=== PATIENT | female | born 2005 | race Hispanic/Latino ===

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

== ENCOUNTER 2023-08-19 11:24 | Emergency (ER) | payer SELFPAY ==
[2023-08-19 11:24] VITALS: BP 108/64; PULSE 66; RESP 16; TEMP 36.2; O2SAT 100; BMI 23.3
[2023-08-19 13:07] LABS: Mucous, Urine 0 SEEN /hpf (<or=2+); Red Blood Cells-Urine 0 SEEN /hpf (0-5)
[2023-08-19 13:11] LABS: Absolute Lymphocyte Count 2.39 X10^3/uL (0.83-4.51); Absolute Neutrophil Count 4.2 X10^3/uL (2.0-7.7); Basophil# 0.05 X10^3/uL; Basophil% 0.7 % (0-1); Eosinophil# 0.07 X10^3/uL; Hematocrit 37.6 % (37-47); Hemoglobin 11.4 g/dL (12.0-15.0); Lymphocyte # 2.39 X10^3/ul (0.83-4.51); Lymphocyte % 33.3 % (19-41); Mean Corp Hgb Conc 30.3 g/dL (32-36); Mean Corpuscular Hgb 24.5 pg (27.0-32.0); Mean Corpuscular Volume 80.9 fL (81-99); Mean Platelet Vol. 9.8 fl (6.2-12.0); Monocyte# 0.43 X10^3/uL; NRBC Flagged by Analyzer 0 % (0-5); Neutrophil # 4.22 X10^3/uL (2.7-7.7); Neutrophil % 58.7 % (47-70); Platelet Count 315 K/mm3 (150-450); RBC Distribution Width CV 15.9 % (11.6-14.6); RBC Distribution Width SD 46.7 fl (35.1-43.9); Red Blood Count 4.65 M/mm3 (4.2-5.4); White Blood Count 7.2 K/mm3 (4.4-11.0)
[2023-08-19 13:12] LABS: Color, Urine Yellow (Yellow); Glucose, Dipstick Normal (Normal); Ketone-Dipstick Negative (Negative); Leukocyte Esterase-Dipstick 500 /ul (Negative); Nitrite-Dipstick Negative (Negative); Occult Blood-Urine Negative /ul (Negative); Protein-Dipstick 15 mg/dl (Negative); Specific Gravity, Urine 1.015 (1.002-1.030); Urine Bilirubin Dipstick Negative (Negative); Urine Clarity Sl. Cloudy (Clear); Urine Urobilinogen Normal (Normal)
[2023-08-19 13:19] LABS: Bacteria 1+ /hpf (None Seen); Squamous Epithelial Cells - UA 10-25 SEEN /hpf (5-10); White Blood Cells 25-50 SEEN /hpf (0-5)
[2023-08-19 13:25] LABS: AST(SGOT) 15 U/L (15-37); Alanine Aminotransfer ALT/SGPT 19 U/L (13-56); Albumin, Serum 4.3 g/dL (3.2-5.0); Alkaline Phosphatase 92 U/L (45-117); Anion Gap 6 (5-15); BUN 10 mg/dL (7-18); BUN/Creat Ratio 16.6 RATIO (10-20); Calcium,Total 9.4 mg/dL (8.5-10.1); Chloride 107 mmol/L (98-107); EST Glomerular Filtration Rate 134 mL/min (>60); Est Glom Filt Rate - Afr Amer 162 mL/min (>60); Estimated Creatinine Clearance 112.86 ml/min; Globulin 4.4 g/dL (2.2-4.2); Glucose 93 mg/dL (74-106); Potassium 3.3 mmol/L (3.5-5.1); Protein, Total 8.7 g/dL (6.4-8.2); Sodium Level 139 mmol/L (136-145)
[2023-08-19 13:39] LABS: Internal QC Validated? YES +Cl - CLEAR BKGD; Pregnancy, Serum, hCG Quali. NEGATIVE Negative
--- NOTE | 2023-08-19 16:07 | EDS_ITS ---
HPI HPI - GI History of Present Illness Chief Complaint: Abd Pain Informant: patient Abdominal Pain/Flank Pain Onset: Weeks (1) Context: Gradual Onset Timing: Continuous Quality: Aching Location: LLQ and Left Flank Worsened by: Nothing Relieved by: Nothing Nausea/Vomiting/Emesis GI Symptom: Positive for Nausea and Vomiting Diarrhea/Melena/Hematochezia GI Symptom: Negative for Diarrhea, Melena or Hematochezia Associated Symptoms Associated Symptoms: Positive for Dysuria and Hematuria; Negative for Frequency Narrative Narrative: Patient presents with abdominal pain that has been getting worse over the past week. Patient states her pain is mainly over the left lower abdomen. Patient states it radiates into her left flank. Patient describes her pain as aching. Patient states nothing makes it better and nothing makes it worse. Patient admits to some nausea and vomiting. Patient denies any hematemesis or coffee- ground emesis. Patient denies any diarrhea, melena, or hematochezia. Patient admits to some dysuria and possible hematuria. PFSH PFSH Medical History no medical history no medical history Home Medications diphenhydramine-zinc acetate 1 %-0.1 % topical cream (Benadryl Itch Stopping) 1 applic topical BID PRN itching #28.3 grams 09/09/22 [Rx Last Taken Unknown] sulfamethoxazole 800 mg-trimethoprim 160 mg tablet 1 tab PO BID #6 TABLETS 08/19/23 [Rx Last Taken Unknown] Allergy/AdvReac Type Severity Reaction Status Date / Time No Known Allergies Allergy Verified 09/09/22 21:45 Surgical History no surgical history no surgical history Social History Smoking Status: Never smoker ROS ROS ED Constitutional Constitutional ED: Denies chills or fever(s) Eyes Eyes: Denies blurry vision or change in vision ENT ENT ED: Denies rhinorrhea or sore throat Cardiovascular Cardiovascular: Denies chest pain or palpitations Respiratory/Chest Respiratory/Chest: Denies cough or dyspnea Gastrointestinal Gastrointestinal: Reports abdominal pain, nausea and vomiting; Denies diarrhea or melena Genitourinary Genitourinary ED: Reports dysuria and hematuria Musculoskeletal Musculoskeletal: Reports back pain; Denies neck pain Integumentary Denies abscess or rash Neurologic Neurologic: Denies headache(s) or weakness Allergic/Immunologic Allergic/Immunologic ED: Denies mouth swelling or urticaria EXAM Physical Exam Const Vital Signs: 08/19/23 11:24 08/19/23 16:39 Temperature 97.2 F L Temperature Source Temporal Pulse Rate 66 69 Respiratory Rate 16 16 Blood Pressure 108/64 109/58 L Blood Pressure Mean 78 75 Pulse Ox 100 100 Oxygen Delivery Method Room Air Room Air Positive well nourished and well developed General Appearance ED: well developed and NAD HEENT Reports moist mucous membranes Neck supple and no JVD Resp normal respiratory effort and clear to auscultation bilaterally Cardio regular rate and regular rhythm GI non-distended Palpation: soft and tender epigastric, LLQ and LUQ; Negative for guarding or rebound tenderness present Back/Spine General Back: CVA tenderness left Neuro CN's II-XII intact bilaterally, moves all extremities, no sensory deficits noted and gait normal Sensorium / Orientation: alert Motor Exam: strength 5/5 throughout Psych mental status grossly normal MDM MDM MDM Narrative Medical decision making narrative: Differential diagnosis includes urinary tract infection, ureteral calculus, pyelonephritis, gastroenteritis, dehydration, electrolyte abnormality, ectopic , ovarian cyst, and viral illness. CBC will be obtained to assess for leukocytosis and anemia. Comprehensive metabolic profile will be obtained to assess for electrolyte abnormality, hepatic function, and renal function. Serum hCG will be obtained to assess for . Urinalysis will be obtained to assess for urinary tract infection. CT scan of the abdomen and pelvis will be obtained to assess for ureteral calculus bowel obstruction, and perforation. Urine culture will be obtained to assess for urinary tract infection. Lab Data Attestation: I reviewed the patient's lab results. Lab results narrative: CBC was reviewed. There is a slight anemia with a hemoglobin of 11.4 and hematocrit 37.6. The remainder is within normal limits. Comprehensive metabolic profile was reviewed and was essentially within normal limits. Serum hCG was reviewed and was negative. Urinalysis was reviewed. Leukocyte esterase was 500 with 25-50 white blood cells. There are 10-25 epithelial cells and 1+ bacteria. Labs: Laboratory Results - last 24 hr 08/19/23 08/19/23 12:45 13:00 WBC 7.2 RBC 4.65 Hgb 11.4 L Hct 37.6 MCV 80.9 L MCH 24.5 L MCHC 30.3 L RDW Std Deviation 46.7 H RDW Coeff of Hollie 15.9 H Plt Count 315 MPV 9.8 Immature Gran % (Auto) 0.300 Neut % (Auto) 58.7 Lymph % (Auto) 33.3 [place] % (Auto) 6.0 Eos % (Auto) 1.0 Baso % (Auto) 0.7 Absolute Neuts (auto) 4.2 Absolute Lymphs (auto) 2.39 Nucleated RBC % 0 Sodium 139 Potassium 3.3 L Chloride 107 Carbon Dioxide 26.0 Anion Gap 6 BUN 10 Creatinine 0.60 Estim Creat Clear Calc 112.86 Est GFR (MDRD) Af Amer 162 Est GFR (MDRD) Non-Af 134 BUN/Creatinine Ratio 16.6 Glucose 93 Calcium 9.4 Total Bilirubin 0.50 AST 15 ALT 19 Alkaline Phosphatase 92 Total Protein 8.7 H Albumin 4.3 Globulin 4.4 H Albumin/Globulin Ratio 1.0 Serum , Qual NEGATIVE Urine Color Yellow Urine Clarity Sl. Cloudy Urine pH 8.0 Ur Specific [place] 1.015 Urine Protein 15 H Urine Glucose (UA) Normal Urine Ketones Negative Urine Occult Blood Negative Urine Nitrite Negative Urine Bilirubin Negative Urine Urobilinogen Normal Ur Leukocyte Esterase 500 H Urine RBC 0 SEEN Urine WBC 25-50 SEEN Ur Squamous Epith Cells 10-25 SEEN Urine Bacteria 1+ Urine Mucus 0 SEEN Radiography Diagnostic Testing: Clinical Impression(s) from Imaging Studies Abdomen/Pelvis CT 08/19/23 16:27 IMPRESSION: Cholelithiasis. Left unilateral nephrocalcinosis without formed stones. Electronically Signed: Jonnathan Varma MD at 17:22 EST , CT scan of the abdomen pelvis was obtained. There is cholelithiasis. There is no ureteral calculus or hydronephrosis. There is nephrocalcinosis but no formed kidney stones. There is no evidence of bowel obstruction or perforation. There is no free air or free fluid. This was interpreted by the radiologist and was also independently reviewed by myself. Treatment and Re-Evaluation :: Patient was given IV fluids, Toradol, and Zofran. Patient was advised of her findings. Patient was given a dose of Bactrim here. Patient was given a prescription for Bactrim. Patient was instructed to drink plenty of fluids. Patient was instructed to follow-up with her primary care physician in 5 to 7 days. Patient understood and was agreeable with the plan. All questions were answered. Discharge Plan Triage Chief Complaint: Abd Pain ED Provider: Luis Garza Dx/Rx/DC Orders Clinical Impression: Left lower quadrant abdominal pain, Cystitis Instructions: ED Cystitis Female Adult Prescriptions: New sulfamethoxazole-trimethoprim [sulfamethoxazole-trimethoprim] 800-160 mg tablet 1 tab PO BID Qty: 6 0RF No Action Benadryl Itch Stopping 1-0.1 % cream 1 applic topical BID PRN (Reason: itching) Qty: 28.3 0RF Primary Care Provider: Care Physician,No Primary Referrals: Kael Lujan MD [Med Staff - [employer] Attendant] - 5-7 Days Care Physician,No Primary [Primary Care Provider] - Print Language: Afghan Disposition Disposition: Home, Self Care
--- NOTE | 2023-08-19 16:27 | CT_ITS ---
STUDY: CT ABDOMEN AND PELVIS WITHOUT CONTRAST REASON FOR EXAM: Female, 18 years old. Left flank pain RADIATION DOSAGE (If Supplied By Facility): CTDIvol = ( 6.04 ) mGy, DLP = ( 289.93 ) mGycm TECHNIQUE: Transaxial images were obtained from the dome of the diaphragm to the symphysis pubis without oral contrast, and without intravenous contrast. Sagittal and coronal images were reconstructed. Individualized dose optimization techniques were used for this CT. COMPARISON: None. FINDINGS: The visualized lung bases are unremarkable. The visualized portions of the heart are within normal limits. Normal liver. There are multiple gallstones. Normal spleen. Normal pancreas. Normal bilateral adrenal glands. Normal right kidney. No hydronephrosis. Numerous scattered calcifications seen in all segments of the left kidney are unilateral left nephrocalcinosis without formed stones. No hydronephrosis. Evaluation of the GI tract is limited by absence of oral contrast. Cannot exclude stomach wall thickening. No dilated loops of bowel or evidence for obstruction. Cannot exclude segmental thickening of the schilling of the small or large bowel. Cannot exclude enteritis or colitis. Moderate diffuse fecal retention. Appendix within normal limits. Normal abdominal aorta. Normal inferior vena cava. Normal retroperitoneum. Normal urinary bladder. Normal visualized uterus. Normal abdominal wall. Normal osseous structures. CT/Abdomen/Pelvis without Cont IMPRESSION: Cholelithiasis. Left unilateral nephrocalcinosis without formed stones. Electronically Signed: Jonnathan Varma MD at 17:22 EST ,
[2023-08-19] MEDS: 0.9% Normal Saline (1000mL) 1,000 ML 1000 ML IV (16:35)
[2023-08-19] MEDS: Ondansetron 4 MG/2 ML Vial IV (16:35)
[2023-08-19] MEDS: Ketorolac 30 MG/ML Syringe IV (16:35)
[2023-08-19 16:39] VITALS: BP 109/58; PULSE 69; RESP 16; O2SAT 100
--- OUTSIDE RECORDS SUMMARY | 2023-08-19 17:34 | XMS RPT_ITS | CCD ---
Author Name Unknown Address [address] [place] [id number] Organization [facility] Care Team Providers Care Newspaper Copy Editor Name Role Phone Unavailable Primary Care Provider RITA Banks Attending Unavailable Medications Completed/Discontinued Medications Medication Drug Class(es) Dates Sig (Normalized) Sig (Original) 1 ml medroxyPROGESTERone acetate 150 mg/ml prefilled syringe (6 sources) Progestin Start: medroxyPROGESTERone (DEPO-PROVERA) 150 mg/mL Inject 1 mL intramuscularly every 12 weeks. 1 mL 3 09/12/2022 Active Problems Problem Classification Problem Date Documented Date Episodic/Chronic Contraceptive and procreative management (7 sources) Patient encounter status; Translations: [Encounter for other contraceptive management] Onset: 09-12-2022 Episodic Results Test Name Value Interpretation Reference Range Facil ity Vital Signs Date Time Vital Sign Value Performing Clinician Rachelle noyola 05-26-2023 16:04-0500 Diastolic blood pressure 62 mm[Hg] Nurse Wstr Work Phone: [facility] 05-26-2023 16:04-0500 Systolic blood pressure 94 mm[Hg] Nurse Wstr Work Phone: [facility] 02-28-2023 16:11-0400 Body weight 65.77 kg Nurse Wstr Work Phone: [facility] 02-28-2023 16:11-0400 Diastolic blood pressure 60 mm[Hg] Nurse Wstr Work Phone: [facility] 02-28-2023 16:11-0400 Systolic blood pressure 92 mm[Hg] Nurse Wstr Work Phone: [facility] 09-12-2022 13:49-0500 Body weight 65.41 kg Rita Girard DIRECTOR OF VIDEO ANALYTICS.PAINTING AND COATING WORKER Work Phone: [facility] 09-12-2022 13:49-0500 Diastolic blood pressure 60 mm[Hg] Rita Girard DIRECTOR OF VIDEO ANALYTICS.PAINTING AND COATING WORKER Work Phone: [facility] 09-12-2022 13:49-0500 Systolic blood pressure 100 mm[Hg] Rita Girard DIRECTOR OF VIDEO ANALYTICS.PAINTING AND COATING WORKER Work Phone: [facility] Encounters Encounter Date Encounter Type Care Provider Facility Start: 05-26-2023 End: 05-26-2023 ambulatory RITA JENISE Facility:[facility] Start: 05-26-2023 End: 05-26-2023 Nursing evaluation of patient and report Nurse Record Changer Tester [facility] Wstr Work Phone: OB/Gynecology Procedures Date Procedure Procedure Detail Performing Clinician Start: 09-12-2022 Urine test visual color cmprsn meths Rita Girard DIRECTOR OF VIDEO ANALYTICS.PAINTING AND COATING WORKER Work Phone: Plan of Treatment Date Care Activity Detail Author Start: 03-21-2023 Influenza vaccination C [facility] Start: 07-21-2022 DEPRESSION ASSESSMENT DEPRESSION ASS ESSMENT [facility] Start: 03-21-2022 Influenza vaccination INFLUENZA (#1) [facility] Start: 2022 Urine microalbumin profile [facility] Start: 2021 CHLAMYDIA SCREENING (18-24) CHLAMYDIA SCREENING (18-24) [facility] Start: 2021 GC (GONORRHEA) SCREE DOMINIQUE (18-24) GC (GONORRHEA) SCREENING (18-24) [facility] Start: 2021 HEPATITIS C SCREENING HEPATITIS C SC REENING [facility] Start: 2021 HIV SCREENING HIV SCREENING [facility] Start: 2019 Meningococcal B Vacc ine: Consider Based On Risk (1 of 2 - Patient Seeks Protection) Meningococcal B Vaccine: Consider Based On Risk (1 of 2 - Patient Seeks Protection) [facility] Start: 2019 MENINGOCOCCAL B: Con warp placer based on risk (1 of 2 - Patient Seeks Protection) MENINGOCOCCAL B: Consider based on risk (1 of 2 - Patient Seeks Protection) [facility] Start: 2017 PEDS TO ADULT TRANSI TION ANNUAL ASSESSMENT PEDS TO ADULT TRANSITION ANNUAL ASSESSMENT [facility] Start: 2015 PEDS TO ADULT TRANSI TION INITIAL DISCUSSION PEDS TO ADULT TRANSITION INITIAL DISCUSSION [facility] Start: 2014 HPV VACCINE (1 - 2-d ose series) HPV VACCINE (1 - 2-dose series) [facility] Start: 2013 MENINGOCOCCAL B: Con warp placer based on risk (1 of 2 - Risk Bexsero 2-dose series) MENINGOCOCCAL B: Consider based on risk (1 of 2 - Risk Bexsero 2-dose series) [facility] Start: 01-26-2012 HPV VACCINE (1 - 2-d ose series) HPV VACCINE (1 - 2-dose series) [facility] Start: 2003 COVID-19 VACCINE (#1) COVID-19 VACCI NE (#1) [facility] Start: 2003 HEPATITIS B (1 of 3 - 3-dose series) HEPATITIS B (1 of 3 - 3-dose series) [facility] Start: 2003 Hepatitis B Vaccine (1 of 3 - 3-dose series) Hepatitis B Vaccine (1 of 3 - 3-dose series) [facility] Social History Date Type Detail Facility Start: 09-12-2022 [facility] Work Phone: Start: 09-12-2022 Tobacco use and exposure Smokeless tobacco non-user [facility] Work Phone: Start: 09-12-2022 End: 02-28-2023 Alcohol intake Lifetime non-drinker (finding) [facility] Start: 2003 Sex Assigned At Not on file C [facility] Start: 12-05-2022 End: 02-28-2023 History of Social function [facility] Start: 12-05-2022 End: 02-28-2023 Tobacco use panel [facility] National Score (1-100), lower number is lower risk 90 [facility] Clinical Notes 09-12-2022 to 05-26-2023 Leyla Mccullough RN - 05/26/2023 3:54 PM Allie Richards RN - 02/28/2023 4:07 PM EDTAddendum Note - Mj Ordaz SUPERVISOR FINISHING - 09/12/2022 3:27 PM ESTKibeth Ordaz SUPERVISOR FINISHING - 09/12/2022 3:24 PM EST Note Date & Type Note Facility 05-26-2023 Note HNO ID: [id number] Author: Leyla Mccullough RN Service: ? Author Type: ? Type: Progress Notes Filed: 05/26/2023 4:14 PM Note Text: [place] Interpreting services utilized via [employer] ID number [id number] Patient identified by name and date of . Merrill Medellin is here for a Depo Provera injection. Patient brought medication. Date last injected: 02/28/2023 Depo-Provera, 150 mg, administered IM left upper quadrant gluteus, Lot # [id number], expiration date 10/18/2026. Depo-Provera was given without incident. Medication verified by dispensing pharmacist. Date of last menses: No LMP recorded (lmp unknown). Irregular bleeding - No Menses ceased - Yes Patient instructed to return to clinic on 12 weeks. [email or web address] Provider Ann-Marie Ortiz MD was present in office at time of injection. Leyla Mccullough RN [facility] 05-26-2023 History of Presen t illness Narrative [place] Interpreting services utilized via [employer] ID number [id number] Patient identified by name and date of . Merrill Medellin is here for a Depo Provera injection. Patient brought medication. Date last injected: 02/28/2023 Depo-Provera, 150 mg, administered IM left upper quadrant gluteus, Lot # [id number], expiration date 10/18/2026. Depo-Provera was given without incident. Medication verified by dispensing pharmacist. Date of last menses: No LMP recorded (lmp unknown). Irregular bleeding - No Menses ceased - Yes Patient instructed to return to clinic on 12 weeks. [email or web address] Provider Ann-Marie Ortiz MD was present in office at time of injection. Leyla Mccullough RN documented in this encounter [facility] 02-28-2023 Note HNO ID: [id number] Author: Allie Barrett RN Service: ? Author Type: ? Type: Progress Notes Filed: 02/28/2023 4:29 PM Note Text: [employer] Compensation Adjuster ID number: [id number] used for entire visit Patient identified by name and date of . Merrill Medellin is here for a Depo Provera injection. Patient brought medication. Date last injected: 12/05/22 Depo-Provera, 150 mg, administered IM right upper quadrant gluteus, Lot # [id number], expiration date 09/17/2024. Depo-Provera was given without incident. Date of last menses: No LMP recorded (lmp unknown). Irregular bleeding - Yes - irregular spotting - will call office in 2 months if it continues for f/u appointment to discuss options. Heavy bleeding precautions reviewed. Menses ceased - No STD prevention discussed: Yes Patient instructed to return to clinic on 12 weeks. [email or web address] Green was present in office at time of injection. Allie Barrett RN [facility] 02-28-2023 History of Presen t illness Narrative [employer] Compensation Adjuster ID number: [id number] used for entire visit Patient identified by name and date of . eMrrill Medellin is here for a Depo Provera injection. Patient brought medication. Date last injected: 12/05/22 Depo-Provera, 150 mg, administered IM right upper quadrant gluteus, Lot # [id number], expiration date 09/17/2024. Depo-Provera was given without incident. Date of last menses: No LMP recorded (lmp unknown). Irregular bleeding - Yes - irregular spotting - will call office in 2 months if it continues for f/u appointment to discuss options. Heavy bleeding precautions reviewed. Menses ceased - No STD prevention discussed: Yes Patient instructed to return to clinic on 12 weeks. [email or web address] Green was present in office at time of injection. Allie Barrett RN documented in this encounter [facility] 12-05-2022 Note HNO ID: [id number] Author: Allie Barrett RN Service: ? Author Type: ? Type: Progress Notes Filed: 12/05/2022 4:30 PM Note Text: Compensation Adjuster [id number] used Patient identified by name and date of . Merrill Medellin is here for a Depo Provera injection. Patient brought medication. Date last injected: 09/12/2022 Depo-Provera, 150 mg, administered IM left upper quadrant gluteus, Lot # [id number], expiration date 07/20/2024. Depo-Provera was given without incident. Date of last menses: Patient's last menstrual period was 09/09/2022. Irregular bleeding - No Menses ceased - Yes STD prevention discussed: Yes Patient instructed to return to clinic on 12 weeks. [email or web address] Provider Keren Boles APRN.MADELEINE was present in office at time of injection. Allie Barrett RN [facility] 09-12-2022 Note HNO ID: [id number] Author: Mj Ordaz LPN Service: ? Author Type: ? Type: Progress Notes Filed: 09/12/2022 3:26 PM Note Text: Pt seen in office today for Depo Provera Injection. Patient brought own med. BP 100/60 Wt 144 lb 3.2 oz (65.4kg) LMP 09/09/2022 Vital signs reviewed. Pt advised when to return for next injection and/or yearly pap. Tolerated injection well? YesPatient identified by name and date of . Merrill Medellin is here for a Depo Provera injection. Patient brought medication. Date last injected: first injection - negative test. Depo-Provera, 150 mg, administered IM right upper quadrant gluteus, Lot # [id number], expiration date 04/19/24. Depo-Provera was given without incident. Date of last menses: Patient's last menstrual period was 09/09/2022. Irregular bleeding - No Menses ceased - No STD prevention discussed: Yes Patient instructed to return to clinic on 12 weeks +/- 5days. [email or web address] [email or web address] Provider Rita Hunter CNP was present in office at time of injection. Mj Ordaz LPN . See medication note for lot#, exp date. [facility] 09-12-2022 Note HNO ID: [id number] Author: Rita Hunter APRN.CNP Service: ? Author Type: Nurse Practitioner Type: Progress Notes Filed: 09/12/2022 2:29 PM Note Text: CONTRACEPTION Compensation Adjuster phone used for this visit Merrill Medellin is a 17 year old who presents today for contraception. Patient states that she has done an injection in the past and the injection was every month. She is interested in doing the injection again. She states her last injection was April 2022. She is currently on her menstrual cycle. Patient states that she is , patient has no identification with her. Patient's last menstrual period was 09/09/2022.. SUBJECTIVE Sexually active: Yes Smoking No Last PAP Method of control: none Methods tried previously: Depo Provera satisfactory Patient currently interested in: Depo Provera Interested in in the next 3 years? No Date of last test: Not applicable Relevant Past Medical History: No relevant past medical history OB History T0 L0 SAB0 IAB0 Ectopic0 Multiple0 Live Births0 PAST MEDICAL HISTORY Diagnosis Date NEGATIVE MEDICAL HISTORY PAST SURGICAL HISTORY Procedure Laterality Date NONE No family history on file.SOCIAL HISTORY Social History Tobacco Use Smoking status: Never Smokeless tobacco: Never Vaping Use Vaping Use: Never used Substance Use Topics Alcohol use: Never Drug use: Never PAST SURGICAL HISTORY Procedure Laterality Date NONE Current Outpatient Medications Medication Sig medroxyPROGESTERone (DEPO-PROVERA) 150 mg/mL Inject 1 mL intramuscularly every 12 weeks. Current Facility-Administered Medications Medication Dose Route Frequency medroxyPROGESTERone 150 mg injection (DEPO-PROVERA) 150 mg INTRAMUSCULAR every 12 weeks Allergies As of Date: 09/12/2022 (No Known Allergies) Fully Assessed 09/12/2022 OBJECTIVE: General Appearance: Well appearing, alert, in no acute distress, well-hydrated, well nourished. Skin: Color normal Neck: Supple, no adenopathy; thyroid symmetric, normal size, no bruits Lungs: clear to auscultation Heart: regular rate and rhythm ASSESSMENT/PLAN: 1. Encounter for other contraceptive management - ICD9: V25.8, ICD10: Z30.8 - Depo Provera ordered - pt will return to the office for injection later today. Rita Hunter APRN.PAINTING AND COATING WORKER Medical Decision Making: Problems: Low: Acute, uncomplicated illness or injury Risk: Moderate: Drug management Medical Decision Making Level: 3 - Low [facility] 09-12-2022 Miscellaneous Notes Addended by: MJ ORDAZ LPN on: 09/12/2022 03:27 PM Modules accepted: Orders, SmartSet Addended by: MONIQUE ZAZUETA MA on: 09/12/2022 03:17 PM Modules accepted: Orders documented in this encounter [facility] 09-12-2022 History of Presen t illness Narrative Pt seen in office today for Depo Provera Injection. Patient brought own med. BP 100/60 Wt 144 lb 3.2 oz (65.4kg) LMP 09/09/2022 Vital signs reviewed. Pt advised when to return for next injection and/or yearly pap. Tolerated injection well? YesPatient identified by name and date of . Merrill Medellin is here for a Depo Provera injection. Patient brought medication. Date last injected: first injection - negative test. Depo-Provera, 150 mg, administered IM right upper quadrant gluteus, Lot # [id number], expiration date 04/19/24. Depo-Provera was given without incident. Date of last menses: Patient's last menstrual period was 09/09/2022. Irregular bleeding - No Menses ceased - No STD prevention discussed: Yes Patient instructed to return to clinic on 12 weeks +/- 5days. [email or web address] [email or web address] Provider Rita Hunter CNP was present in office at time of injection. Mj Ordaz LPN . See medication note for lot#, exp date. CONTRACEPTION Compensation Adjuster phone used for this visit Merrill Medellin is a 17 year old who presents today for contraception. Patient states that she has done an injection in the past and the injection was every month. She is interested in doing the injection again. She states her last injection was April 2022. She is currently on her menstrual cycle. Patient states that she is , patient has no identification with her. Patient's last menstrual period was 09/09/2022.. SUBJECTIVE Sexually active: Yes Smoking No Last PAP Method of control: none Methods tried previously: Depo Provera satisfactory Patient currently interested in: Depo Provera Interested in in the next 3 years? No Date of last test: Not applicable Relevant Past Medical History: No relevant past medical history OB History T0 L0 SAB0 IAB0 Ectopic0 Multiple0 Live Births0 PAST MEDICAL HISTORY Diagnosis Date NEGATIVE MEDICAL HISTORY PAST SURGICAL HISTORY Procedure Laterality Date NONE No family history on file.SOCIAL HISTORY Social History Tobacco Use Smoking status: Never Smokeless tobacco: Never Vaping Use Vaping Use: Never used Substance Use Topics Alcohol use: Never Drug use: Never PAST SURGICAL HISTORY Procedure Laterality Date NONE Current Outpatient Medications Medication Sig medroxyPROGESTERone (DEPO-PROVERA) 150 mg/mL Inject 1 mL intramuscularly every 12 weeks. Current Facility-Administered Medications Medication Dose Route Frequency medroxyPROGESTERone 150 mg injection (DEPO-PROVERA) 150 mg INTRAMUSCULAR every 12 weeks Allergies As of Date: 09/12/2022 (No Known Allergies) Fully Assessed 09/12/2022 OBJECTIVE: General Appearance: Well appearing, alert, in no acute distress, well-hydrated, well nourished. Skin: Color normal Neck: Supple, no adenopathy; thyroid symmetric, normal size, no bruits Lungs: clear to auscultation Heart: regular rate and rhythm ASSESSMENT/PLAN: 1. Encounter for other contraceptive management - ICD9: V25.8, ICD10: Z30.8 - Depo Provera ordered - pt will return to the office for injection later today. Rita Hunter APRN.CNP Medical Decision Making: Problems: Low: Acute, uncomplicated illness or injury Risk: Moderate: Drug management Medical Decision Making Level: 3 - Low documented in this encounter [facility] 09-12-2022 Instructions Mj Ordaz LPN - 09/12/2022 3:24 PM EST Patient Instructions for Depo-Provera You have chosen a very effective method of control - shots every 3 months of Depo-Provera. control shots are used by more than 6 million women around the world, and Depo-provera is the most commonly used injection or shot. Certain Women should NOT use Depo-Provera Contraception injection. You should not use Depo-Provera if you... Think you might be Have any vaginal bleeding without a known cause Have had cancer of the breast Have had a stroke Have or have had blood clots (phlebitis) in your legs Have problems with your liver or liver disease Are allergic to Depo-Provera Contraception Injection (medroxyprogesterone acetate or any of it's ingredients) If you wish to get , stop control shots several months before you plan to get . The following information may help you use Depo-Provera: 1. Use another form of control for 2 weeks after your first injection. 2. Depo-Provera tends to make a woman's periods less regular and bleeding and spotting between periods is common for the first 9 -12 months. Some women stop having periods completely, usually after 9 months on Depo-Provera. If your pattern of bleeding concerns you, return to the clinic to get a blood test for anemia, or to check the possibility of , or to check for an infection. 3. Return to the clinic every 3 months for another shot.(Between weeks 11-13 from your last injection) 4. Weight gain is common the first 3 years on Depo-Provera. More than 5 pounds the first year, should be reported. 5. Depo-Provera is intended to prevent . It does not protect against transmission of HIV (AIDS) and other sexually transmitted diseases such as chlamydia, genital herpes, genital warts, gonorrhea, hepatitis B, and syphilis. You should continue to use condoms. 6. Report to the clinic if you develop any problems. DANGER SIGNALS - Weight gain of more than 5 pounds - Headaches - Heavy Bleeding - Depression - Frequent urination These instructions have been explained to the patient and she received a copy. 09/12/2022 documented in this encounter [facility] Encounter for management and injection of depo-Provera- Primary Surveillance of other previously prescribed contraceptive method documented in this encounter [facility] Medications Administered Section Active Administered Medications - up to 3 most recent administrations Medication Order MAR Action Action Date Dose Rate Site medroxyPROGESTERone 150 mg injection (DEPO-PROVERA) 150 mg, INTRAMUSCULAR, EVERY 12 WEEKS, 4 doses, First dose on [place] 09/12/22 at 0800, Last dose on [place] 05/22/23 at 0800, Hazardous Potential Reproductive Risk Drug: Use appropriate PPE. Given 09/12/2022 3:26 PM EST 150 mg Buttocks, Right Active Administered Medications - up to 3 most recent administrations Medication Order MAR Action Action Date Dose Rate Site medroxyPROGESTERone 150 mg injection (DEPO-PROVERA) 150 mg, INTRAMUSCULAR, EVERY 12 WEEKS, 4 doses, First dose on [place] 09/12/22 at 0800, Last dose on [place] 05/22/23 at 0800, Hazardous Potential Reproductive Risk Drug: Use appropriate PPE. Given 02/28/2023 4:21 PM EDT 150 mg Buttocks, Right Inactive Administered Medications - up to 3 most recent administrations Medication Order MAR Action Action Date Dose Rate Site medroxyPROGESTERone 150 mg injection (DEPO-PROVERA) 150 mg, INTRAMUSCULAR, EVERY 12 WEEKS, 4 doses, First dose on Fri09/12/22 at 0800, Last dose on [place] 05/22/23 at 0800, Hazardous Potential Reproductive Risk Drug: Use appropriate PPE. Given 05/26/2023 4:13 PM EST 150 mg Buttocks, Left Summary Purpose Family History No Family History Records Found Advance Directives No Advanced Directives Records Found Additional Source Comments Source Comments (unrecognize d section and content) In the event this informatio n is protected by the Federal Confidentiality of Alcohol and Drug Abuse Patient Records regulations: The Federal rules restrict any use of the information to criminally investigate or prosecute any alcohol or drug abuse patient.[facility] the event this information is protected by the Federal Confidentiality of Alcohol and Drug Abuse Patient Records regulations: The Federal rules restrict any use of the information to criminally investigate or prosecute any alcohol or drug abuse patient.[facility] the event this information is protected by the Federal Confidentiality of Alcohol and Drug Abuse Patient Records regulations: The Federal rules restrict any use of the information to criminally investigate or prosecute any alcohol or drug abuse patient.[facility] Reason for Visit (unrecogniz ed section and content) Specialty Diagnoses / Procedures Referred By Contac t Referred To Contact END FINDER FORMING DEPARTMENT Diagnoses dEPO Procedures DEPO Self Wstr, Nurse Record Changer Tester [facility] [address] [place] [address] Referral ID Status Reason Start Date Expiration Date Visits Requested Visits Authorized [id number] Authorized Financial Clearance Required - Self Pay Patient Cleared - Qualified 100% FAS 02/28/2023 05/29/2023 99 99 Reason Onset Date Comments Discussion Depo Provera Injection 09/12/2022 Patient b rought own med Specialty Diagnoses / Procedures Referred By Aquiles t Referred To Contact END FINDER [employer]MING DEPARTMENT Diagnoses Encounter for surveillance of injectable contraceptive Depo shot Procedures MEDROXYPROGESTERONE ACETATE OFFICE/OUTPATIENT [facility] 60-74 MINUTES DEPO PROVERA INJECTION Self Wstr, Nurse Record Changer Tester [facility] [address] [place] [address] Referral ID Status Reason Start Date Expiration Date Visits Requested Visits Authorized [id number] Authorized Patient Cleared - Qualified 100% FAS 09/12/2022 12/11/2022 99 99 Reason Onset Date Comments Depo Provera Injection 02/28/2023 Specialty Diagnoses / Procedures Referred By Contac t Referred To Contact END FINDER [employer]MING DEPARTMENT Diagnoses dEPO Procedures DEPO Self Wstr, Nurse Record Changer Tester [facility] [address] [place] [address] Referral ID Status Reason Start Date Expiration Date Visits Requested Visits Authorized [id number] Authorized Financial Clearance Required - Self Pay Patient Cleared - Qualified 100% FAS 02/28/2023 05/29/2023 99 99 Reason Onset Date Comments Depo Provera Injection 05/26/2023 INFORMATION SOURCE (unrecogn ized section and content) FOR RECORDS PERTAINING TO PATIENTS WHO ARE OR HAVE BEEN ENROLLED IN A CHEMICAL DEPENDENCY/SUBSTANCEABUSE PROGRAM, SOME INFORMATION MAY BE OMITTED. This clinical summary was aggregated from multiple sources. Caution should be exercised in using it in the provision of clinical care. This summary normalizes information from multiple sources, and as a consequence, information in this document may materially change the coding, format and clinical context of patient data. In addition, data may be omitted in some cases. CLINICAL DECISIONS SHOULD BE BASED ON THE PRIMARY CLINICAL RECORDS. [facility] [employer] [facility]. provides no warranty or guarantee of the accuracy or completeness of information in this document.
[2023-08-19] MEDS: Smz/Tmp Ds Tablet 1 TABLET PO (17:48)
== END 2023-08-19 17:56 | disposition home or self-care (01) ==
PROVIDERS: Emergency Provider Emergency Medicine; Visit Provider Emergency Medicine
DX: N30.91 Cystitis, unspecified with hematuria (principal); R11.2 Nausea with vomiting, unspecified; R10.32 Left lower quadrant pain
CPT/HCPCS: 74176; 80053; 81001; 84703; 85025; 96361; 96374; 96375; 99284; J7030; A4216; J2405

== ENCOUNTER 2023-12-16 14:03 | Emergency (ER) | payer SELFPAY ==
[2023-12-16 14:04] VITALS: BP 109/72; PULSE 75; RESP 14; TEMP 36.8; O2SAT 100; BMI 32.5
--- NOTE | 2023-12-16 14:37 | EDS_ITS ---
HPI HPI - URI History of Present Illness Chief Complaint: Sore Throat Narrative Narrative: 18-year-old South Korean-speaking female presenting with sore throat, headache, cough. She also reports she vomited yesterday. Patient is South Korean-speaking and recruitment consultant pad was used for history. Patient states all her symptoms started yesterday. She took ibuprofen once. She is no longer vomiting but still has some nausea and a mild headache. Patient denies any sick contacts. Patient states that she does not believe she is . Patient denies any significant medical history. Patient states that her friend took her temperature yesterday and told her she had a fever but did not tell her what the number was. Patient has not checked her temperature again. ROS ROS ED Constitutional Constitutional ED: Reports fever(s) and subjective; Denies chills or sweats Eyes Eyes: Denies blurry vision or change in vision ENT ENT ED: Reports sore throat; Denies ear pain Cardiovascular Cardiovascular: Denies chest pain, palpitations or racing heartbeat Respiratory/Chest Respiratory/Chest: Reports cough; Denies dyspnea or sputum Gastrointestinal Gastrointestinal: Denies abdominal pain, constipation, diarrhea, nausea or vomiting Genitourinary Genitourinary ED: Denies dysuria, hematuria or urinary frequency Musculoskeletal Musculoskeletal: Denies arthralgias, myalgias or neck pain Integumentary Denies abscess, Abrasions or rash Neurologic Neurologic: Reports headache(s); Denies paresthesias or weakness Psychiatric Psychiatric: Denies anxiety, depression, suicidal ideation or suicidal thoughts Endocrine Endocrinology: Denies polydipsia or polyuria PFSH PFS Home Medications ?Medication ?Instructions ?Recorded ?Last Taken ?Type diphenhydramine-zinc acetate 1 1 applic topical BID PRN itching 09/09/22 Unknown Rx %-0.1 % topical cream (Benadryl #28.3 grams Itch Stopping) sulfamethoxazole 800 1 tab PO BID #6 TABLETS 08/19/23 Unknown Rx mg-trimethoprim 160 mg tablet Allergy/AdvReac Type Severity Reaction Status Date / Time No Known Allergies Allergy Verified 12/16/23 14:06 Social History Smoking Status: Never smoker EXAM Physical Exam Const Vital Signs: 12/16/23 14:04 Temperature 98.3 F Temperature Source Temporal Pulse Rate 75 Respiratory Rate 14 Blood Pressure 109/72 Blood Pressure Mean 84 Pulse Ox 100 Oxygen Delivery Method Room Air Positive well nourished General Appearance ED: NAD; Negative for pallor HEENT Reports moist mucous membranes normocephalic and atraumatic Throat: posterior oropharynx normal Eyes PERRL and EOMs intact bilaterally Neck no lymphadenopathy and supple Resp normal respiratory effort and clear to auscultation bilaterally Auscultation: Negative for rales, rhonchi or wheezes Cardio Rate: regular rate and bradycardia Neuro oriented x3 and CN's II-XII intact bilaterally Sensorium / Orientation: alert Motor Exam: strength 5/5 throughout Psych mental status grossly normal Skin General Skin Exam: Negative for jaundice or pallor MDM MDM MDM Narrative Medical decision making narrative: Patient presenting with sore throat, cough, headache, nausea. HEENT exam unremarkable. Lungs clear to auscultation bilaterally. Heart regular rate and rhythm without murmur. Vital signs are normal. Patient afebrile O2 sat 100% on room air. Counseled patient that we will test her for COVID and influenza. She is given Zofran and Tylenol. Patient's COVID, flu negative. Patient counseled this is likely a viral syndrome. She will be given a prescription for Zofran. Tylenol and ibuprofen for pain and fevers. Impression 1. Viral pharyngitis 2. Headache 3. Cough Lab Data Attestation: I reviewed the patient's lab results. Discharge Plan Triage Chief Complaint: Sore Throat ED Provider: Miller Gallardo Dx/Rx/DC Orders Prescriptions: No Action Benadryl Itch Stopping 1-0.1 % cream 1 applic topical BID PRN (Reason: itching) Qty: 28.3 0RF sulfamethoxazole-trimethoprim [sulfamethoxazole-trimethoprim] 800-160 mg tablet 1 tab PO BID Qty: 6 0RF Primary Care Provider: Care Physician,No Primary Referrals: Care Physician,No Primary [Primary Care Provider] - Print Language: South Korean
[2023-12-16] MEDS: Acetaminophen 500 MG Tablet 1000 MG PO (14:43)
[2023-12-16] MEDS: Ondansetron ODT 4 MG Tablet PO (14:44)
== END 2023-12-16 16:10 | disposition home or self-care (01) ==
PROVIDERS: Emergency Provider Student in an Organized Health Care Education/Training Program; Visit Provider Student in an Organized Health Care Education/Training Program
DX: J02.8 Acute pharyngitis due to other specified organisms (principal); Z11.52 Encounter for screening for COVID-19; B97.89 Other viral agents as the cause of diseases classified elsewhere; R51.9 Headache, unspecified; R05.9 Cough, unspecified
CPT/HCPCS: 87631; 99283

== ENCOUNTER 2024-03-01 11:55 | Emergency (ER) | payer SELFPAY ==
[2024-03-01 11:58] VITALS: BP 109/60; PULSE 66; RESP 19; TEMP 36.1; O2SAT 100; BMI 27.3
--- NOTE | 2024-03-01 15:31 | EDS_ITS ---
HPI History of Present Illness Chief Complaint: Abd Pain Informant: patient Narrative Narrative: Patient is a 19-year-old female presenting with back pain rating to her left leg, nausea and vomiting. Patient Sudanese-speaking and lining mechanic was used licensed midwife ID [id number]. Patient states the past 3 to 4 days she has had pain at her waistline and points to her lower back diffusely. She states it is worse with movement and walking. She also states she is developed nausea and vomiting had 3 episodes of vomiting today. She notes that she feels dizzy. She denies any radiation of the pain. She does report some lower abdominal pain and states it feels exam is pushing out from her abdomen. Denies any urinary symptoms. States her bowel moods been normal. Not take anything for pain prior to arrival. Denies any trauma or new activities to cause back pain. Has never anything like this before. States her last menstrual period was 3 weeks ago but is very light and only lasted for 1 day. She is not sure if she is . States she has paracetamol at home for headaches does not take any medication for her pain. No other complaints or concerns reported at this time. PFSH [facility] Home Medications ?Medication ?Instructions ?Recorded ?Last Taken ?Type diphenhydramine-zinc acetate 1 1 applic topical BID PRN itching 09/09/22 Unknown Rx %-0.1 % topical cream (Benadryl #28.3 grams Itch Stopping) sulfamethoxazole 800 1 tab PO BID #6 TABLETS 08/19/23 Unknown Rx mg-trimethoprim 160 mg tablet ondansetron 4 mg disintegrating 4 mg PO Q8H PRN PRN Nausea #10 tabs 12/16/23 Unknown Rx tablet ibuprofen 600 mg tablet 600 mg PO Q6H PRN PRN pain #20 03/01/24 Unknown Rx TABLETS ondansetron 4 mg disintegrating 4 mg PO Q8H PRN PRN Nausea #10 tabs 03/01/24 Unknown Rx tablet sulfamethoxazole 800 1 tab PO BID #14 tabs 03/01/24 Unknown Rx mg-trimethoprim 160 mg tablet (Bactrim DS) Allergy/AdvReac Type Severity Reaction Status Date / Time No Known Allergies Allergy Verified 12/16/23 14:06 Social History Smoking Status: Never smoker ROS ROS ED Constitutional Constitutional ED: Denies chills or fever(s) Respiratory/Chest Respiratory/Chest: Denies cough Gastrointestinal Gastrointestinal: Reports abdominal pain, nausea and vomiting; Denies constipation or diarrhea Genitourinary Genitourinary ED: Denies dysuria, hematuria or urinary frequency Musculoskeletal Musculoskeletal: Reports back pain; Denies arthralgias Integumentary Denies rash Neurologic Neurologic: Denies headache(s), paresthesias or weakness EXAM Physical Exam Const Vital Signs: 03/01/24 11:58 Temperature 96.9 F L Temperature Source Temporal Pulse Rate 66 Respiratory Rate 19 H Blood Pressure 109/60 Blood Pressure Mean 76 Pulse Ox 100 Oxygen Delivery Method Room Air Positive well nourished and well developed General Appearance ED: well developed and NAD HEENT Reports moist mucous membranes Neck supple Chest Wall inspection of chest normal and palpation of chest normal Resp normal respiratory effort and clear to auscultation bilaterally Cardio regular rate and regular rhythm GI non-distended GI Narrative: pain localized to the suprapubic region but mild pain in B/L lower quadrants as well. No pain at McBurney's point. No upper abdominal pain appreciated. Auscultation: normoactive bowel sounds Palpation: soft and tender suprapubic; Negative for guarding Back/Spine no CVA tenderness Back/Spine Narrative: mild b/l tenderness on the lower lumbar paraspinal regions (around L4/L5). Not reproducible with palpation. Negative bilateral straight leg test but does have some increased back pain with straight leg test of the left leg. Fort some pain radiating to her left lateral hip. Cervical Spine: Negative for cervical spine tenderness Thoracic Spine / Upper Back: Negative for thoracic spinal tenderness or paraspinal muscle tenderness Lumbar Spine / Lower Back: Negative for lumbar spinal tenderness Extremity normal to inspection Extremity Narrative: 2+ DP pulses General Extremety ED: Negative for edema General Extremity: Negative for edema Neuro oriented x3 Sensorium / Orientation: alert Motor Exam: Negative for general weakness Psych mental status grossly normal Skin no rashes or lesions noted and no wounds MDM MDM MDM Narrative Medical decision making narrative: Patient is evaluated for low back pain. No complaints of abdominal pain, nausea and vomiting. She is well-appearing on exam. Does have some mild suprapubic tenderness. Differential includes was not limited to urinary tract infection, muscle skeletal pain, and ectopic . Lab work largely normal including CBC and CMP. She is not having colicky abdominal pain and have a low suspicion for renal colic. She is not have any CVA tenderness low suspicion for pyelonephritis. She is afebrile in the emergency room. She is quite well-appearing. Urinalysis is consistent with infection with 50-100 white blood cells and 3+ bacteria however it is mildly contaminated. Will send for culture. Will start patient on Bactrim and also give prescription for Motrin and Zofran for symptomatic control. First dose of Bactrim given in the emergency room. Patient tolerates p.o. challenge. Results and discharge instructions reviewed with patient using formal double end tenoner operator. Patient agreeable plan of care. Is given referral for [facility]. Discharged home in stable condition. Given return precautions to the emergency room. Lab Data Attestation: I reviewed the patient's lab results. Labs: Laboratory Results - last 24 hr 03/01/24 03/01/24 14:55 15:43 WBC 5.2 RBC 4.83 Hgb 12.7 Hct 40.3 MCV 83.4 MCH 26.3 L MCHC 31.5 L RDW Std Deviation 48.4 H RDW Coeff of Hollie 15.9 H Plt Count 266 MPV 10.0 Immature Gran % (Auto) 0.400 Neut % (Auto) 58.6 Lymph % (Auto) 33.5 [place] % (Auto) 6.1 Eos % (Auto) 0.8 Baso % (Auto) 0.6 Absolute Neuts (auto) 3.1 Absolute Lymphs (auto) 1.75 Nucleated RBC % 0 Sodium 137 Potassium 3.4 L Chloride 107 Carbon Dioxide 26.0 Anion Gap 4 L BUN 13 Creatinine 0.57 Estim Creat Clear Calc 129.89 Est GFR (MDRD) Af Amer 173 Est GFR (MDRD) Non-Af 143 BUN/Creatinine Ratio 23.0 H Glucose 93 Calcium 9.5 Total Bilirubin 1.00 AST 15 ALT 17 Alkaline Phosphatase 82 Total Protein 8.5 H Albumin 4.2 Globulin 4.3 H Albumin/Globulin Ratio 1.0 Lipase 46 Urine Color Yellow Urine Clarity Cloudy Urine pH 6.0 Ur Specific [place] 1.025 Urine Protein 30 H Urine Glucose (UA) Normal Urine Ketones Negative Urine Occult Blood 10 H Urine Nitrite Negative Urine Bilirubin 1 H Urine Urobilinogen 1 H Ur Leukocyte Esterase 500 H Urine RBC 0 SEEN Urine WBC 50-100 SEEN Ur Squamous Epith Cells 25-50 SEEN Urine Bacteria 3+ Urine Mucus 2+ Urine Test Negative Discharge Plan Triage Chief Complaint: Abd Pain ED Provider: Audra Palomino Dx/Rx/DC Orders Clinical Impression: Low back pain, UTI (urinary tract infection) Instructions: ED Back Pain (Acute or Chronic), ED Cystitis Female Adult Prescriptions: New ondansetron 4 mg tablet,disintegrating 4 mg PO Q8H PRN PRN (Reason: Nausea) Qty: 10 0RF sulfamethoxazole-trimethoprim [Bactrim DS] 800-160 mg tablet 1 tab PO BID Qty: 14 0RF ibuprofen 600 mg tablet 600 mg PO Q6H PRN PRN (Reason: pain) Qty: 20 0RF No Action Benadryl Itch Stopping 1-0.1 % cream 1 applic topical BID PRN (Reason: itching) Qty: 28.3 0RF sulfamethoxazole-trimethoprim [sulfamethoxazole-trimethoprim] 800-160 mg tablet 1 tab PO BID Qty: 6 0RF ondansetron 4 mg tablet,disintegrating 4 mg PO Q8H PRN PRN (Reason: Nausea) Qty: 10 0RF Primary Care Provider: Care Physician,No Primary Referrals: Jeanne Molina [Non-Staff] - Care Physician,No Primary [Primary Care Provider] - Print Language: Sudanese Disposition Disposition: Home, Self Care Discharge Date/Time: 03/01/24 17:14
[2024-03-01 15:40] LABS: Red Blood Cells-Urine 0 SEEN /hpf (0-5)
[2024-03-01 15:49] LABS: Color, Urine Yellow (Yellow); Glucose, Dipstick Normal (Normal); Ketone-Dipstick Negative (Negative); Leukocyte Esterase-Dipstick 500 /ul (Negative); Nitrite-Dipstick Negative (Negative); Occult Blood-Urine 10 /ul (Negative); Protein-Dipstick 30 mg/dl (Negative); Specific Gravity, Urine 1.025 (1.002-1.030); Urine Clarity Cloudy (Clear); Urine Urobilinogen 1 mg/dl (Normal)
[2024-03-01 15:51] LABS: Urine Bilirubin Dipstick 1 mg/dL (Negative)
[2024-03-01 15:52] LABS: Absolute Lymphocyte Count 1.75 X10^3/uL (0.83-4.51); Absolute Neutrophil Count 3.1 X10^3/uL (2.0-7.7); Basophil# 0.03 X10^3/uL; Basophil% 0.6 % (0-1); Eosinophil# 0.04 X10^3/uL; Eosinophils% 0.8 % (0-5); Hematocrit 40.3 % (37-47); Hemoglobin 12.7 g/dL (12.0-15.0); Lymphocyte # 1.75 X10^3/ul (0.83-4.51); Lymphocyte % 33.5 % (19-41); Mean Corp Hgb Conc 31.5 g/dL (32-36); Mean Corpuscular Hgb 26.3 pg (27.0-32.0); Mean Corpuscular Volume 83.4 fL (81-99); Monocyte# 0.32 X10^3/uL; Monocyte% 6.1 % (0-10); NRBC Flagged by Analyzer 0 % (0-5); Neutrophil # 3.06 X10^3/uL (2.7-7.7); Neutrophil % 58.6 % (47-70); Platelet Count 266 K/mm3 (150-450); RBC Distribution Width CV 15.9 % (11.6-14.6); RBC Distribution Width SD 48.4 fl (35.1-43.9); Red Blood Count 4.83 M/mm3 (4.2-5.4); White Blood Count 5.2 K/mm3 (4.4-11.0)
[2024-03-01] MEDS: Acetaminophen 325 MG Tablet 650 MG PO (15:52)
[2024-03-01] MEDS: 0.9% Normal Saline (1000mL) 1,000 ML 1000 ML IV (15:53)
[2024-03-01] MEDS: Ondansetron 4 MG/2 ML Vial IV (15:53)
[2024-03-01 16:03] LABS: Squamous Epithelial Cells - UA 25-50 SEEN /hpf (5-10)
[2024-03-01 16:04] LABS: Bacteria 3+ /hpf (None Seen); Mucous, Urine 2+ /hpf (<or=2+); White Blood Cells 50-100 SEEN /hpf (0-5)
[2024-03-01 16:05] LABS: Internal QC Validated? YES +Cl - CLEAR BKGD; Pregnancy, Urine Negative Negative
[2024-03-01 16:08] LABS: AST(SGOT) 15 U/L (15-37); Alanine Aminotransfer ALT/SGPT 17 U/L (13-56); Albumin, Serum 4.2 g/dL (3.2-5.0); Alkaline Phosphatase 82 U/L (45-117); Anion Gap 4 (5-15); BUN 13 mg/dL (7-18); Calcium,Total 9.5 mg/dL (8.5-10.1); Chloride 107 mmol/L (98-107); Creatinine, Serum 0.57 mg/dL (0.55-1.02); EST Glomerular Filtration Rate 143 mL/min (>60); Est Glom Filt Rate - Afr Amer 173 mL/min (>60); Estimated Creatinine Clearance 129.89 ml/min; Globulin 4.3 g/dL (2.2-4.2); Glucose 93 mg/dL (74-106); Lipase 46 U/L (13-75); Potassium 3.4 mmol/L (3.5-5.1); Protein, Total 8.5 g/dL (6.4-8.2); Sodium Level 137 mmol/L (136-145)
[2024-03-01] MEDS: Smz/Tmp Ds Tablet 1 TABLET PO (16:37)
== END 2024-03-01 17:14 | disposition home or self-care (01) ==
PROVIDERS: Emergency Provider Emergency Medicine; Visit Provider Emergency Medicine
DX: N39.0 Urinary tract infection, site not specified (principal); M54.50 Low back pain, unspecified; R11.2 Nausea with vomiting, unspecified
CPT/HCPCS: 80053; 81001; 81025; 83690; 85025; 87077; 87086; 87088; 99285; J7030; A4216; J2405